=== PATIENT | male | born 1975 | race Caucasian/White ===

== ENCOUNTER 2017-02-22 13:27 | Emergency (ER) | payer MEDICAID ==
[~2017-02-22 13:27] MED LIST: DOXYCYCLINE HY100 M3 PO; METRONIDAZOLE500 M3 PO; NAPROSYN500 M1 PO; NORCO 5-325 TA1 EACH PO; PERCOCET 5/3251 TAB PO
[2017-02-22 14:35] LABS: BASO ABSOLUTE COUNT 0.1 tho/cmm (0.0-0.2); EOS % 1.4 % (0-7); EOSINOPHIL ABSOLUTE COUNT 0.1 tho/cmm (0.0-0.7); HCT-HEMATOCRIT 42.2 % (36.0-53.5); HGB-HEMOGLOBIN 14.3 gm/dl (13.5-17.0); IMMATURE GRANULOCYTES ABSOLUTE 0.01 tho/cmm (0-0.03); IMMATURE GRANULOCYTES PERCENT 0.2 % (0-0.3); LYMPH % 28.7 % (20-45); LYMPH ABSOLUTE COUNT 1.7 tho/cmm (0.8-4.5); MCH (MEAN CORPUSCULAR HGB) 29.1 pg (28.0-32.0); MCHC MEAN CORPUSCULAR HGB CONC 33.9 % (32.0-36.0); MCV (MEAN CELL VOLUME) 85.9 fl (82.0-96.0); MEAN PLATELET VOLUME 10.1 cmc (9.4-12.4); MONO % 6.6 % (0-12); MONOCYTE ABSOLUTE COUNT 0.4 tho/cmm (0.0-1.2); NEUTROPHIL ABSOLUTE COUNT 3.7 tho/cmm (1.6-8.0); NEUTROPHIL-AUTOMATED 3.7 tho/cmm (1.6-8.0); NEUTROPHILS % 62.1 % (40-80); PLATELET COUNT 165 tho/cmm (150-450); RED BLOOD COUNT 4.91 mil/cmm (4.40-5.70); WHITE BLOOD COUNT 5.9 tho/cmm (4.0-10.0)
[2017-02-22 14:52] LABS: ALB/GLOB RATIO 1.3 (0.8-2.0); ALBUMIN 3.8 g/dl (3.5-5.0); ALKALINE PHOSPHATASE 39 U/L (33-138); ALT/SGPT 17 U/L (12-78); ANION GAP 10 mmol/L (0-20); AST/SGOT 14 U/L (10-40); BILIRUBIN,TOTAL 0.3 mg/dl (0.0-1.5); BLOOD UREA NITROGEN 16 mg/dl (6-24); CALCIUM 8.4 mg/dl (8.5-10.5); CARBON DIOXIDE-VENOUS 28 mmol/L (22-32); CHLORIDE 108 mmol/l (96-110); GLUCOSE 96 mg/dL (70-110); POTASSIUM 3.7 mmol/L (3.7-5.1); SODIUM 142 mmol/L (135-145); eGFR VALUE FOR BLACK >90 mL/Min
[2017-02-22 16:26] LABS: URINE BILIRUBIN NEGATIVE (NEG); URINE BLOOD NEGATIVE (NEG); URINE GLUCOSE (UA) NEGATIVE (NEG); URINE KETONE NEGATIVE (NEG); URINE LEUKOCYTE ESTERASE NEGATIVE (NEG); URINE NITRITE NEGATIVE (NEG); URINE PROTEIN NEGATIVE (NEG); URINE SPECIFIC GRAVITY 1.015 (1.003-1.030)
[2017-02-22 16:32] LABS: URINE APPEARANCE CLEAR; URINE COLOR YELLOW
[2017-02-22] MEDS ORDERED: TRAMADOL HCL50 M2 PO (16:52)
[2017-03-03] MEDS ORDERED: ULTRAM50 M1 PO (12:01)
== END 2017-02-22 16:55 ==
LOC: EDMED 13:27
PROVIDERS: Physician Assistant
DX: R10.11 Right upper quadrant pain (principal); R10.12 Left upper quadrant pain; R11.0 Nausea; R19.7 Diarrhea, unspecified
CPT/HCPCS: J1885; J7030

== ENCOUNTER 2017-03-04 10:47 | Day surgery (SDC) | payer MEDICAID ==
[~2017-03-04 10:47] MED LIST changes: +TRAMADOL HCL50 M2 PO; +ULTRAM50 M1 PO
== END 2017-03-04 19:10 ==
LOC: SHSB 10:47 → ORW 13:19 → PACU 14:31 → SHSB 16:05
PROC: 0DB78ZX Excision of Stomach, Pylorus, Via Natural or Artificial Opening Endoscopic, Diagnostic (ICD-10-PCS; principal; 2017-03-04)
PROC: 0DB18ZX Excision of Upper Esophagus, Via Natural or Artificial Opening Endoscopic, Diagnostic (ICD-10-PCS; 2017-03-04)
PROC: 0FT44ZZ Resection of Gallbladder, Percutaneous Endoscopic Approach (ICD-10-PCS; 2017-03-04)
PROC: BF101ZZ Fluoroscopy of Bile Ducts using Low Osmolar Contrast (ICD-10-PCS; 2017-03-04)
DX: K82.8 Other specified diseases of gallbladder (principal); K21.0 Gastro-esophageal reflux disease with esophagitis; G40.909 Epilepsy, unspecified, not intractable, without status epilepticus; Z88.0 Allergy status to penicillin; Z98.890 Other specified postprocedural states
CPT/HCPCS: C1894; J1170; J1885; J1956; J2175; J3010; J7030; J7050; Q9966